=== PATIENT | female | born 1995 | race Caucasian/White ===

== ENCOUNTER 2021-10-10 02:21 | Emergency (ER) | payer BC ==
[2021-10-10] MEDS ORDERED: Sodium Chloride 0.9% 1,000 ML IV STA (02:37)
[2021-10-10] MEDS ORDERED: Sodium Chloride 0.9% 10 ML Syringe FLUSH PRN (02:37)
[2021-10-10] MEDS ORDERED: Ondansetron 4 MG/2 ML SDV IVPUSH ONE (02:37)
[2021-10-10] MEDS ORDERED: HYDROmorphone 1 MG/ML Syringe IVPUSH ONE (02:39)
--- NOTE | 2021-10-10 02:54 | EDM.PDOC ---
ED HPI GENERAL MEDICAL PROBLEM - General Chief Complaint: Gastrointestinal Problem Stated Complaint: ABD PAIN/NAUSEA Time Seen by Provider: 10/10/21 02:24 Source of Information: Reports: Patient History Limitations: Reports: No Limitations - History of Present Illness INITIAL COMMENTS - FREE TEXT/NARRATIVE: The patient presents with severe abdominal pain, nausea and vomiting. This all started on Wednesday night with nausea, vomiting and some diarrhea. She did have some abdominal cramps but it was from the vomiting. She then developed severe abdominal pain this evening. She has no fever, chills, cough, chest pain or shortness of breath. She has no dysuria or hematuria. She still has her appendix and gallbladder. She does not think she is . Onset: Gradual Duration: Day(s): (3) Location: Reports: Abdomen Quality: Reports: Sharp Severity: Severe Improves with: Reports: None Worsens with: Reports: None Associated Symptoms: Reports: Nausea/Vomiting. Denies: Chest Pain, Cough, Fever/Chills, Headaches, Shortness of Breath Lower Abdomen Pain Score (Numeric/FACES): 10 - Related Data Allergies Allergy/AdvReac Type Severity Reaction Status Date / Time amoxicillin Allergy Hives Verified 10/10/21 02:34 Home Meds: Home Meds Hydrocodone/Acetaminophen [Hydrocodone-Acetamin 5-325 mg] 1 - 2 each PO Q6H PRN #15 tablet 10/10/21 [Rx] Ondansetron [Zofran ODT] 4 mg PO Q6H PRN #20 tab.dis 10/10/21 [Rx] Potassium Chloride 20 meq PO DAILY #30 tablet.er 10/10/21 [Rx] Past Medical History - Past Surgical History HEENT Surgical History: Reports: Oral Surgery Social & Family History - Tobacco Use Tobacco Use Status *Q: Never Tobacco User - Caffeine Use Caffeine Use: Reports: None - Recreational Drug Use Recreational Drug Use: No ED ROS GENERAL - Review of Systems Review Of Systems: See Below Constitutional: Reports: No Symptoms HEENT: Reports: No Symptoms Respiratory: Reports: No Symptoms Cardiovascular: Reports: No Symptoms Endocrine: Reports: No Symptoms GI/Abdominal: Reports: Abdominal Pain, Diarrhea, Nausea, Vomiting : Reports: No Symptoms Musculoskeletal: Reports: No Symptoms ED EXAM, GI/ABD - Physical Exam Exam: See Below Exam Limited By: No Limitations General Appearance: Alert, No Apparent Distress Ears: Normal External Exam Nose: Normal Inspection Head: Atraumatic, Normocephalic Neck: Normal Inspection Respiratory/Chest: No Respiratory Distress, Lungs Clear, Normal Breath Sounds Cardiovascular: Regular Rate, Rhythm, No Edema, No Murmur GI/Abdominal Exam: Soft, No Organomegaly, No Mass, Tender (Moderate lower abdominal tenderness with some distension) Course - Vital Signs Last Recorded V/S: Last Vital Signs Temp 99.8 F 10/10/21 02:30 Pulse 122 H 10/10/21 02:30 Resp 20 10/10/21 02:30 BP 110/64 10/10/21 02:30 Pulse Ox 96 10/10/21 02:30 - Orders/Labs/Meds Orders: Active Orders 24 hr Category Date Time Status Peripheral IV Care [RC] . DIRECTED Care 10/10/21 02:38 Active Potassium Chloride [KCl in Water 10 MEQ/100 ML] 10 meq Med 10/10/21 05:45 Active Premix Bag 1 bag IV Q1H Sodium Chloride 0.9% [Saline Flush] Med 10/10/21 02:37 Active 10 ml FLUSH ASDIRECTED PRN ED Antiemetic Medication Reflex [OM.PC] Stat Oth 10/10/21 02:38 Ordered Peripheral IV Insertion Adult [OM.PC] Stat Oth 10/10/21 02:37 Ordered Medication Orders Potassium Chloride 10 meq/ (Premix) 100 mls @ 100 mls/hr IV Q1H FRIDA Stop: 10/10/21 07:44 Last Admin: 10/10/21 06:55 Dose: 100 mls/hr Documented by: Infusion: 10/10/21 06:52 Dose: 100 mls/hr Documented by: Admin: 10/10/21 05:52 Dose: 100 mls/hr Documented by: MILLI Sodium Chloride (Sodium Chloride 0.9% 10 Ml Syringe) 10 ml FLUSH ASDIRECTED PRN PRN Reason: Keep Vein Open Last Admin: 10/10/21 02:52 Dose: 10 ml Documented by: MILLI Labs: Laboratory Tests 10/10/21 10/10/21 10/10/21 Range/Units 02:54 02:54 02:54 WBC 10.58 H (3.98-10.04) K/mm3 RBC 4.06 (3.98-5.22) M/mm3 Hgb 11.7 D (11.2-15.7) gm/dl Hct 34.9 (34.1-44.9) % MCV 86.0 (79.4-94.8) fl MCH 28.8 (25.6-32.2) pg MCHC 33.5 (32.2-35.5) g/dl RDW Std Deviation 38.9 (36.4-46.3) fL Plt Count 177 L D (182-369) K/mm3 MPV 9.4 (9.4-12.3) fl Neut % (Auto) 89.9 H (34.0-71.1) % Lymph % (Auto) 3.5 L (19.3-51.7) % [place] % (Auto) 6.0 (4.7-12.5) % Eos % (Auto) 0 L (0.7-5.8) Baso % (Auto) 0.1 (0.1-1.2) % Neut # (Auto) 9.51 H (1.56-6.13) K/mm3 Lymph # (Auto) 0.37 L (1.18-3.74) K/mm3 [place]herty # (Auto) 0.64 H (0.24-0.36) K/mm3 Eos # (Auto) 0.00 L (0.04-0.36) K/mm3 Baso # (Auto) 0.01 (0.01-0.08) K/mm3 Sodium 138 (136-145) mEq/L Potassium 2.9 L (3.5-5.1) mEq/L Chloride 100 (98-107) mEq/L Carbon Dioxide 21 (21-32) mEq/L Anion Gap 19.9 H (5-15) BUN 12 (7-18) mg/dL Creatinine 0.9 (0.55-1.02) mg/dL Est Cr Clr Drug Dosing 82.82 mL/min Estimated GFR (MDRD) > 60 (>60) mL/min BUN/Creatinine Ratio 13.3 L (14-18) Glucose 113 H (70-99) mg/dL Calcium 8.8 (8.5-10.1) mg/dL Total Bilirubin 0.6 (0.2-1.0) mg/dL AST 27 (15-37) U/L ALT 34 (14-59) U/L Alkaline Phosphatase 49 (46-116) U/L Total Protein 7.2 (6.4-8.2) g/dl Albumin 3.7 (3.4-5.0) g/dl Globulin 3.5 gm/dL Albumin/Globulin Ratio 1.1 (1-2) Lipase 69 L (73-393) U/L HCG, Qual Negative (NEGATIVE) Urine Color (Yellow) Urine Appearance (Clear) Urine pH (5.0-8.0) Ur Specific [place] (1.005-1.030) Urine Protein (Negative) Urine Glucose (UA) (Negative) Urine Ketones (Negative) Urine Occult Blood (Negative) Urine Nitrite (Negative) Urine Bilirubin (Negative) Urine Urobilinogen (0.2-1.0) Ur Leukocyte Esterase (Negative) Urine RBC (0-5) /hpf Urine WBC (0-5) /hpf Ur Squamous Epith Cells (0-5) /hpf Amorphous Sediment (NOT SEEN) /hpf Urine Bacteria (FEW) /hpf Urine Mucus (FEW) /hpf 10/10/21 Range/Units 05:45 WBC (3.98-10.04) K/mm3 RBC (3.98-5.22) M/mm3 Hgb (11.2-15.7) gm/dl Hct (34.1-44.9) % MCV (79.4-94.8) fl MCH (25.6-32.2) pg MCHC (32.2-35.5) g/dl RDW Std Deviation (36.4-46.3) fL Plt Count (182-369) K/mm3 MPV (9.4-12.3) fl Neut % (Auto) (34.0-71.1) % Lymph % (Auto) (19.3-51.7) % [place] % (Auto) (4.7-12.5) % Eos % (Auto) (0.7-5.8) Baso % (Auto) (0.1-1.2) % Neut # (Auto) (1.56-6.13) K/mm3 Lymph # (Auto) (1.18-3.74) K/mm3 [place] # (Auto) (0.24-0.36) K/mm3 Eos # (Auto) (0.04-0.36) K/mm3 Baso # (Auto) (0.01-0.08) K/mm3 Sodium (136-145) mEq/L Potassium (3.5-5.1) mEq/L Chloride (98-107) mEq/L Carbon Dioxide (21-32) mEq/L Anion Gap (5-15) BUN (7-18) mg/dL Creatinine (0.55-1.02) mg/dL Est Cr Clr Drug Dosing mL/min Estimated GFR (MDRD) (>60) mL/min BUN/Creatinine Ratio (14-18) Glucose (70-99) mg/dL Calcium (8.5-10.1) mg/dL Total Bilirubin (0.2-1.0) mg/dL AST (15-37) U/L ALT (14-59) U/L Alkaline Phosphatase (46-116) U/L Total Protein (6.4-8.2) g/dl Albumin (3.4-5.0) g/dl Globulin gm/dL Albumin/Globulin Ratio (1-2) Lipase (73-393) U/L HCG, Qual (NEGATIVE) Urine Color Yellow (Yellow) Urine Appearance Clear (Clear) Urine pH 5.5 (5.0-8.0) Ur Specific [place] 1.010 (1.005-1.030) Urine Protein Negative (Negative) Urine Glucose (UA) Negative (Negative) Urine Ketones Trace H (Negative) Urine Occult Blood Trace-intact H (Negative) Urine Nitrite Negative (Negative) Urine Bilirubin Negative (Negative) Urine Urobilinogen 1.0 (0.2-1.0) Ur Leukocyte Esterase Negative (Negative) Urine RBC 0-5 (0-5) /hpf Urine WBC 0-5 (0-5) /hpf Ur Squamous Epith Cells 5-10 H (0-5) /hpf Amorphous Sediment Few H (NOT SEEN) /hpf Urine Bacteria Few (FEW) /hpf Urine Mucus Few (FEW) /hpf Meds: Medications Generic Name Dose Route Start Last Admin Trade Name Freq PRN Reason Stop Dose Admin Potassium Chloride 10 meq/ 100 mls @ 100 mls/hr 10/10/21 05:45 10/10/21 06:55 Premix IV 10/10/21 07:44 100 mls/hr Q1H FRIDA Administration Sodium Chloride 10 ml 10/10/21 02:37 10/10/21 02:52 Sodium Chloride 0.9% 10 Ml Syringe FLUSH 10 ml ASDIRECTED PRN Administration Keep Vein Open Discontinued Medications Generic Name Dose Route Start Last Admin Trade Name Freq PRN Reason Stop Dose Admin Hydromorphone HCl 1 mg 10/10/21 02:39 10/10/21 02:50 Hydromorphone 1 Mg/Ml Syringe IVPUSH 10/10/21 02:40 1 mg ONETIME ONE Administration Hydromorphone HCl 0.5 mg 10/10/21 05:43 10/10/21 05:51 Hydromorphone 0.5 Mg/0.5 Ml Syringe IVPUSH 10/10/21 05:44 0.5 mg ONETIME ONE Administration Sodium Chloride 1,000 mls @ 1,000 mls/hr 10/10/21 02:37 10/10/21 02:49 Normal Saline IV 10/10/21 03:36 1,000 mls/hr .BOLUS STA Administration Sodium Chloride 1,000 mls @ 1,000 mls/hr 10/10/21 05:43 10/10/21 05:51 Normal Saline IV 10/10/21 06:42 1,000 mls/hr ONETIME ONE Administration Ketorolac Tromethamine 30 mg 10/10/21 06:27 10/10/21 06:32 Ketorolac 30 Mg/Ml Sdv IVPUSH 10/10/21 06:28 30 mg ONETIME ONE Administration Metoclopramide HCl 10 mg 10/10/21 03:23 10/10/21 03:28 Metoclopramide 10 Mg/2 Ml Sdv IVPUSH 10/10/21 03:24 10 mg ONETIME ONE Administration Ondansetron HCl 4 mg 10/10/21 02:37 10/10/21 02:50 Ondansetron 4 Mg/2 Ml Sdv IVPUSH 10/10/21 02:38 4 mg ONETIME ONE Administration - Re-Assessments/Exams Free Text/Narrative Re-Assessment/Exam: 10/10/21 02:54 I ordered an IV NS 1L bolus, zofran 4mg IV, dilaudid 1mg IV, labs, UA and a CT of her abdomen and pelvis with IV and oral contrast. 10/10/21 06:57 Her WBC was elevated at 10.58. Her K was low at 2.9. Her anion gap was elevated at 19.9. Her UA shows no UTI. I ordered 20meq of KCL IV. She had more pain so I gave her dilaudid 0.5mg IV and then some toradol. I also gave her reglan 10mg IV. Her CT shows no acute abnormality is identified on CT study of the abdomen and pelvis. Findings believed to be nonacute. She feels better. I will discharge her home on zofran and hydrocodone and some potassium. Departure - Departure Time of Disposition: 07:05 Disposition: Home, Self-Care 01 Condition: Good Clinical Impression: Viral gastroenteritis - Discharge Information *PRESCRIPTION DRUG MONITORING PROGRAM REVIEWED*: Not Applicable *COPY OF PRESCRIPTION DRUG MONITORING REPORT IN PATIENT MELI: Not Applicable Prescriptions: Hydrocodone/Acetaminophen [Hydrocodone-Acetamin 5-325 mg] 1 - 2 each PO Q6H PRN #15 tablet PRN Reason: Pain Potassium Chloride 20 meq PO DAILY #30 tablet.er Ondansetron [Zofran ODT] 4 mg PO Q6H PRN #20 tab.dis PRN Reason: Nausea\vomiting Referrals: Beth Dorantes [facility] CONSULTANT [Primary Care Provider] - 1 Week Forms: ED Department Discharge Additional Instructions: Drink plenty of fluids. Take potassium daily. Take the zofran every 6 hours as needed for nausea and vomiting. Take tylenol or motrin as needed for pain. If that does not help, try the hydrocodone. Please return if you are worse. Sepsis Event Note (ED) - Evaluation Sepsis Screening Result: No Definite Risk - Focused Exam Vital Signs: Vital Signs Temp Pulse Resp BP Pulse Ox 10/10/21 02:30 99.8 F 122 H 20 110/64 96 - My Orders Last 24 Hours: My Active Orders 10/10/21 02:37 Sodium Chloride 0.9% [Saline Flush] 10 ml FLUSH ASDIRECTED PRN Peripheral IV Insertion Adult [OM.PC] Stat 10/10/21 02:38 Peripheral IV Care [RC] . DIRECTED ED Antiemetic Medication Reflex [OM.PC] Stat 10/10/21 05:45 Potassium Chloride [KCl in Water 10 MEQ/100 ML] 10 meq Premix Bag 1 bag IV Q1H - Assessment/Plan Last 24 Hours: My Active Orders 10/10/21 02:37 Sodium Chloride 0.9% [Saline Flush] 10 ml FLUSH ASDIRECTED PRN Peripheral IV Insertion Adult [OM.PC] Stat 10/10/21 02:38 Peripheral IV Care [RC] . DIRECTED ED Antiemetic Medication Reflex [OM.PC] Stat 10/10/21 05:45 Potassium Chloride [KCl in Water 10 MEQ/100 ML] 10 meq Premix Bag 1 bag IV Q1H
[2021-10-10] MEDS ORDERED: Metoclopramide 10 MG/2 ML SDV IVPUSH ONE (03:23)
[2021-10-10] MEDS ORDERED: Sodium Chloride 0.9% 1,000 ML IV ONE (05:43)
[2021-10-10] MEDS ORDERED: HYDROmorphone 0.5 MG/0.5 ML Syringe IVPUSH ONE (05:43)
[2021-10-10] MEDS: Potassium Chloride 10 MEQ in Premix Bag 1 BAG IV SCH ×2 (05:52→06:55)
[2021-10-10] MEDS ORDERED: Ketorolac 30 MG/ML SDV IVPUSH ONE (06:27)
--- NOTE | 2021-10-10 06:37 | CT ---
CT abdomen and the pelvis Technique: Multiple axial sections were obtained from above the dome of the diaphragm inferiorly through the pubic symphysis. Intravenous and oral contrast were utilized. Delayed images were also obtained through the bladder. Reconstructed coronal and sagittal images were obtained. Comparison: Prior pelvic ultrasound of 08/22/21. Findings: Visualized lung bases show nothing acute. Liver contains no focal parenchymal abnormality. Gallbladder contains no calcified gallstones. Spleen size is normal. Adrenal glands show no nodule. Pancreas is within normal limits. Kidneys show symmetric contrast enhancement. No hydronephrosis or mass is seen. Abdominal aorta shows no aneurysm. No retroperitoneal adenopathy or mesenteric abnormalities are seen. No pelvic mass or adenopathy is seen. Device is seen within the vagina most likely representing a menstrual cup. Minimal fluid is seen within the pelvis believed to be physiologic. Appendix is felt to be visualized. Delayed images show contrast within the distal ureters and within the bladder. Bone window settings were reviewed. No acute osseous finding is seen. Impression: 1. No acute abnormality is identified on CT study of the abdomen and pelvis. 2. Findings believed to be nonacute as described above. Diagnostic code #2 I agree with preliminary report from [facility] finalized on 10/10/21, 6:18 AM [employer], code 1
[2021-10-10] MEDS ORDERED: Acetaminophen 325 MG Tab PO ONE (08:18)
== END 2021-10-10 08:30 | disposition home or self-care (01) ==
LOC: JD.ED 02:21
DX: A08.4 Viral intestinal infection, unspecified (principal); R11.2 Nausea with vomiting, unspecified; Z88.0 Allergy status to penicillin
CPT/HCPCS: 36415; 74177; 80053; 81001; 83690; 84703; 85025; 96365; 96366; 96375; 96376; 99284; A9270; J1170; J1885; J2405; J2765; J3480; J7030

== ENCOUNTER 2021-10-12 17:58 | Emergency (ER) | payer BC ==
[2021-10-12 19:48] LABS: CORONAVIRUS COVID-19 NAA NEGATIVE (NEGATIVE)
--- NOTE | 2021-10-12 20:32 | EDM.PDOC ---
ED HPI GENERAL MEDICAL PROBLEM - General Chief Complaint: Respiratory Problem Stated Complaint: CHEST TIGHTNESS/TROUBLE BREATHING Time Seen by Provider: 10/12/21 20:25 - History of Present Illness INITIAL COMMENTS - FREE TEXT/NARRATIVE: 25-year-old female presents the emergency room after being seen a few days ago with anterior chest pain still some nausea and vomiting. Patient was seen couple days ago diagnosed with acute gastroenteritis. She is developing worsening chest pain. The chest pain seems to be anterior chest right under her breastbone. It is not associated with breathing difficulties or shortness of breath her pulse rate been normal run a little on the fast side. The pain that she has is worsened by deep breathing and coughing. She is not aware of any fevers or chills she is trying to keep fluids down this is not working so good. The patient was noted to be mildly hypokalemic on her last visit and had this somewhat corrected. She seemed to be coughing more but still has some gastrointestinal symptoms. Treatments CHECKERER HAND: Reports: Other (see below) Other Treatments CHECKERER HAND: tylenol 2 tabs today Chest Pain Score (Numeric/FACES): 8 Back Pain Score (Numeric/FACES): 8 Abdomen Pain Score (Numeric/FACES): 5 - Related Data Allergies Allergy/AdvReac Type Severity Reaction Status Date / Time amoxicillin Allergy Hives Verified 10/10/21 02:34 Home Meds: Home Meds Hydrocodone/Acetaminophen [Hydrocodone-Acetamin 5-325 mg] 1 - 2 each PO Q6H PRN #15 tablet 10/10/21 [Rx] Ondansetron [Zofran ODT] 4 mg PO Q6H PRN #20 tab.dis 10/10/21 [Rx] Potassium Chloride 20 meq PO DAILY #30 tablet.er 10/10/21 [Rx] Famotidine [Pepcid AC] 20 mg PO BID #30 tablet 10/12/21 [Rx] Hydrocodone/Acetaminophen [HYDROcodone-Acetaminophen 5-325 MG] 1 each PO Q6H PRN #14 tab 10/12/21 [Rx] Naproxen 500 mg PO BID #30 tablet 10/12/21 [Rx] Past Medical History - Past Surgical History HEENT Surgical History: Reports: Oral Surgery Social & Family History - Tobacco Use Tobacco Use Status *Q: Never Tobacco User Second Hand Smoke Exposure: No - Caffeine Use Caffeine Use: Reports: None ED ROS GENERAL - Review of Systems Review Of Systems: See Below Constitutional: Reports: No Symptoms HEENT: Reports: No Symptoms Respiratory: Reports: No Symptoms Cardiovascular: Reports: No Symptoms Endocrine: Reports: No Symptoms GI/Abdominal: Reports: Nausea, Vomiting : Reports: No Symptoms Musculoskeletal: Reports: No Symptoms Skin: Reports: No Symptoms Neurological: Reports: No Symptoms Psychiatric: Reports: No Symptoms ED EXAM, GENERAL - Physical Exam Exam: See Below Exam Limited By: No Limitations General Appearance: Alert, No Apparent Distress Eye Exam: Bilateral Eye: EOMI, Normal Inspection, PERRL Ears: Normal External Exam, Normal Canal, Hearing Grossly Normal, Normal TMs Nose: Normal Inspection, Normal Mucosa, No Blood Head: Atraumatic, Normocephalic Neck: Normal Inspection, Supple, Non-Tender, Full Range of Motion. No: Lymphadenopathy (L), Lymphadenopathy (R) Respiratory/Chest: No Respiratory Distress, Lungs Clear, Normal Breath Sounds, No Accessory Muscle Use, Chest Non-Tender Cardiovascular: Normal Peripheral Pulses, Regular Rate, Rhythm, No Edema, Tachycardia (Mild) GI/Abdominal: Normal Bowel Sounds, Soft, Tender (Normal discomfort with palpation no localizing signs no rigidity rebound or guarding) Back Exam: Normal Inspection. No: CVA Tenderness (L), CVA Tenderness (R) Extremities: Normal Inspection, Non-Tender, No Pedal Edema Neurological: Alert, Oriented, Normal Cognition #1 Interpretation EKG Date: 10/12/21 Rhythm: Other (Mild sinus tachycardia) Rate (Beats/Min): 103 [place]: Normal P-Wave: Present QRS: Normal ST-T: Normal QT: Normal IL/PQ Interval: Downsloping IL interval in leads I to aVF and the lateral precordial leads Comparison: NA - No Prior EKG EKG Interpretation Comments: Abnormal EKG Course - Vital Signs Last Recorded V/S: Last Vital Signs Temp 36.2 C 10/12/21 18:37 Pulse 109 H 10/12/21 18:37 Resp BP 104/72 10/12/21 18:37 Pulse Ox 99 10/12/21 21:25 - Orders/Labs/Meds Orders: Active Orders 24 hr Category Date Time Status Ang Chest [CT] Stat Exams 10/12/21 21:18 Taken Chest 1V Frontal [CR] Stat Exams 10/12/21 19:03 Taken Peripheral IV Insertion Adult [OM.PC] Stat Oth 10/12/21 18:54 Ordered Labs: Laboratory Tests 10/12/21 10/12/21 10/12/21 Range/Units 19:00 19:10 19:10 WBC 8.72 (3.98-10.04) K/mm3 RBC 3.99 (3.98-5.22) M/mm3 Hgb 11.3 (11.2-15.7) gm/dl Hct 34.0 L (34.1-44.9) % MCV 85.2 (79.4-94.8) fl MCH 28.3 (25.6-32.2) pg MCHC 33.2 (32.2-35.5) g/dl RDW Std Deviation 39.9 (36.4-46.3) fL Plt Count 199 (182-369) K/mm3 MPV 9.7 (9.4-12.3) fl Neut % (Auto) 93.6 H (34.0-71.1) % Lymph % (Auto) 2.3 L (19.3-51.7) % Ralls % (Auto) 2.2 L (4.7-12.5) % Eos % (Auto) 0.3 L (0.7-5.8) Baso % (Auto) 0.1 (0.1-1.2) % Neut # (Auto) 8.16 H (1.56-6.13) K/mm3 Lymph # (Auto) 0.20 L (1.18-3.74) K/mm3 Ralls # (Auto) 0.19 L (0.24-0.36) K/mm3 Eos # (Auto) 0.03 L (0.04-0.36) K/mm3 Baso # (Auto) 0.01 (0.01-0.08) K/mm3 Manual Slide Review Abnormal smear D-Dimer, Quantitative (0.19-0.50) mg/L Sodium (136-145) mEq/L Potassium (3.5-5.1) mEq/L Chloride (98-107) mEq/L Carbon Dioxide (21-32) mEq/L Anion Gap (5-15) BUN (7-18) mg/dL Creatinine (0.55-1.02) mg/dL Est Cr Clr Drug Dosing mL/min Estimated GFR (MDRD) (>60) mL/min BUN/Creatinine Ratio (14-18) Glucose (70-99) mg/dL Calcium (8.5-10.1) mg/dL Troponin I (0.00-0.056) ng/mL HCG, Quant < 1.0 mIU/mL Urine Color (Yellow) Urine Appearance (Clear) Urine pH (5.0-8.0) Ur Specific [place] (1.005-1.030) Urine Protein (Negative) Urine Glucose (UA) (Negative) Urine Ketones (Negative) Urine Occult Blood (Negative) Urine Nitrite (Negative) Urine Bilirubin (Negative) Urine Urobilinogen (0.2-1.0) Ur Leukocyte Esterase (Negative) Urine RBC (0-5) /hpf Urine WBC (0-5) /hpf Ur Squamous Epith Cells (0-5) /hpf Urine Bacteria (FEW) /hpf Urine Mucus (FEW) /hpf Influenza Type A RNA Negative (NEGATIVE) Influenza Type B RNA Negative (NEGATIVE) SARS-CoV-2 RNA (IRAM) Negative (NEGATIVE) Group A Strep (PCR) (NOT DETECT) 10/12/21 10/12/21 10/12/21 Range/Units 19:10 19:10 19:10 WBC (3.98-10.04) K/mm3 RBC (3.98-5.22) M/mm3 Hgb (11.2-15.7) gm/dl Hct (34.1-44.9) % MCV (79.4-94.8) fl MCH (25.6-32.2) pg MCHC (32.2-35.5) g/dl RDW Std Deviation (36.4-46.3) fL Plt Count (182-369) K/mm3 MPV (9.4-12.3) fl Neut % (Auto) (34.0-71.1) % Lymph % (Auto) (19.3-51.7) % Ralls % (Auto) (4.7-12.5) % Eos % (Auto) (0.7-5.8) Baso % (Auto) (0.1-1.2) % Neut # (Auto) (1.56-6.13) K/mm3 Lymph # (Auto) (1.18-3.74) K/mm3 Ralls # (Auto) (0.24-0.36) K/mm3 Eos # (Auto) (0.04-0.36) K/mm3 Baso # (Auto) (0.01-0.08) K/mm3 Manual Slide Review D-Dimer, Quantitative 5.77 H (0.19-0.50) mg/L Sodium 134 L (136-145) mEq/L Potassium 3.2 L (3.5-5.1) mEq/L Chloride 97 L (98-107) mEq/L Carbon Dioxide 27 (21-32) mEq/L Anion Gap 13.2 (5-15) BUN 18 (7-18) mg/dL Creatinine 0.8 (0.55-1.02) mg/dL Est Cr Clr Drug Dosing 93.18 mL/min Estimated GFR (MDRD) > 60 (>60) mL/min BUN/Creatinine Ratio 22.5 H (14-18) Glucose 77 (70-99) mg/dL Calcium 8.3 L (8.5-10.1) mg/dL Troponin I < 0.017 (0.00-0.056) ng/mL HCG, Quant mIU/mL Urine Color (Yellow) Urine Appearance (Clear) Urine pH (5.0-8.0) Ur Specific [place] (1.005-1.030) Urine Protein (Negative) Urine Glucose (UA) (Negative) Urine Ketones (Negative) Urine Occult Blood (Negative) Urine Nitrite (Negative) Urine Bilirubin (Negative) Urine Urobilinogen (0.2-1.0) Ur Leukocyte Esterase (Negative) Urine RBC (0-5) /hpf Urine WBC (0-5) /hpf Ur Squamous Epith Cells (0-5) /hpf Urine Bacteria (FEW) /hpf Urine Mucus (FEW) /hpf Influenza Type A RNA (NEGATIVE) Influenza Type B RNA (NEGATIVE) SARS-CoV-2 RNA (IRAM) (NEGATIVE) Group A Strep (PCR) (NOT DETECT) 10/12/21 10/12/21 Range/Units 20:50 20:50 WBC (3.98-10.04) K/mm3 RBC (3.98-5.22) M/mm3 Hgb (11.2-15.7) gm/dl Hct (34.1-44.9) % MCV (79.4-94.8) fl MCH (25.6-32.2) pg MCHC (32.2-35.5) g/dl RDW Std Deviation (36.4-46.3) fL Plt Count (182-369) K/mm3 MPV (9.4-12.3) fl Neut % (Auto) (34.0-71.1) % Lymph % (Auto) (19.3-51.7) % Ralls % (Auto) (4.7-12.5) % Eos % (Auto) (0.7-5.8) Baso % (Auto) (0.1-1.2) % Neut # (Auto) (1.56-6.13) K/mm3 Lymph # (Auto) (1.18-3.74) K/mm3 Ralls # (Auto) (0.24-0.36) K/mm3 Eos # (Auto) (0.04-0.36) K/mm3 Baso # (Auto) (0.01-0.08) K/mm3 Manual Slide Review D-Dimer, Quantitative (0.19-0.50) mg/L Sodium (136-145) mEq/L Potassium (3.5-5.1) mEq/L Chloride (98-107) mEq/L Carbon Dioxide (21-32) mEq/L Anion Gap (5-15) BUN (7-18) mg/dL Creatinine (0.55-1.02) mg/dL Est Cr Clr Drug Dosing mL/min Estimated GFR (MDRD) (>60) mL/min BUN/Creatinine Ratio (14-18) Glucose (70-99) mg/dL Calcium (8.5-10.1) mg/dL Troponin I (0.00-0.056) ng/mL HCG, Quant mIU/mL Urine Color Yellow (Yellow) Urine Appearance Slt cloudy H (Clear) Urine pH 6.5 (5.0-8.0) Ur Specific [place] 1.020 (1.005-1.030) Urine Protein 3+ H (Negative) Urine Glucose (UA) Negative (Negative) Urine Ketones 2+ H (Negative) Urine Occult Blood 3+ H (Negative) Urine Nitrite Negative (Negative) Urine Bilirubin 1+ H (Negative) Urine Urobilinogen 0.2 (0.2-1.0) Ur Leukocyte Esterase Negative (Negative) Urine RBC 5-10 H (0-5) /hpf Urine WBC 0-5 (0-5) /hpf Ur Squamous Epith Cells 20-30 H (0-5) /hpf Urine Bacteria Moderate H (FEW) /hpf Urine Mucus Few (FEW) /hpf Influenza Type A RNA (NEGATIVE) Influenza Type B RNA (NEGATIVE) SARS-CoV-2 RNA (IRAM) (NEGATIVE) Group A Strep (PCR) Not detected (NOT DETECT) Meds: Medications Discontinued Medications Generic Name Dose Route Start Last Admin Trade Name Freq PRN Reason Stop Dose Admin Albuterol 0 gm 10/12/21 20:38 10/12/21 21:24 Albuterol 6.7 Gm Inhaler INH 10/12/21 20:39 2 puff ONETIME ONE Administration Lactated Ringer's 1,000 mls @ 999 mls/hr 10/12/21 20:37 10/12/21 20:50 Ringers, Lactated IV 10/12/21 21:37 999 mls/hr .BOLUS ONE Administration Sodium Chloride 100 mls @ 60 mls/min 10/12/21 21:30 10/12/21 21:58 Normal Saline IV 60 mls/min ASDIRECTED FRIDA Administration Iopamidol 100 ml 10/12/21 21:29 10/12/21 21:57 Iopamidol 755 Mg/Ml 100 Ml Bottle IVPUSH 10/12/21 21:30 100 ml ONETIME ONE Administration Ketorolac Tromethamine 15 mg 10/12/21 22:34 10/12/21 22:44 Ketorolac 15 Mg/Ml Sdv IVPUSH 10/12/21 22:35 15 mg ONETIME ONE Administration Morphine Sulfate 2 mg 10/12/21 22:15 10/12/21 22:19 Morphine 2 Mg/Ml Syringe IVPUSH 10/12/21 22:16 2 mg ONETIME ONE Administration Ondansetron HCl 4 mg 10/12/21 20:37 10/12/21 20:50 Ondansetron 4 Mg Tab.Dis PO 10/12/21 20:38 4 mg ONETIME ONE Administration Potassium Chloride 20 meq 10/12/21 20:37 10/12/21 20:50 Potassium Chloride 20 Meq Tab.Er PO 10/12/21 20:38 20 meq ONETIME ONE Administration Potassium Chloride 20 meq 10/12/21 22:35 10/12/21 22:44 Potassium Chloride 20 Meq Tab.Er PO 10/12/21 22:36 20 meq ONETIME ONE Administration Sodium Chloride 10 ml 10/12/21 18:54 10/12/21 21:57 Sodium Chloride 0.9% 10 Ml Syringe FLUSH 10 ml ASDIRECTED PRN Administration Keep Vein Open Sodium Chloride 10 ml 10/12/21 21:29 10/12/21 22:19 Sodium Chloride 0.9% 10 Ml Sdv FLUSH 10/12/21 21:30 10 ml ONETIME ONE Administration - Re-Assessments/Exams Free Text/Narrative Re-Assessment/Exam: 10/12/21 22:36 Patient's D-dimer was elevated. She had some discomfort was given some morphine for this. CTA did not show pulmonary embolism but showed a very small pe ricardial effusion and small bilateral pleural effusions. Patient was given 15 mg of IV Toradol. With his continued hypokalemia she is got 8 or 10 tablets at home she will continue taking these as directed. She has a couple hydrocodone left we will give her a few more. Start her on Pepcid 20 mg twice daily and naproxen 500 mg p.o. twice daily and have her follow-up in the [facility] on Wednesday for recheck. Departure - Departure Time of Disposition: 22:37 Disposition: Home, Self-Care 01 Clinical Impression: Pericarditis, Pleuritis - Discharge Information Prescriptions: Hydrocodone/Acetaminophen [HYDROcodone-Acetaminophen 5-325 MG] 1 each PO Q6H PRN #14 tab PRN Reason: Pain Naproxen 500 mg PO BID #30 tablet Famotidine [Pepcid AC] 20 mg PO BID #30 tablet Instructions: Pericarditis, Pleurisy, [id number] Referrals: Yelena Liang GEM EXPERT [Primary Care Provider] - Forms: ED Department Discharge Additional Instructions: Return to the emergency room with any questions problems or worsening symptoms. I have given you a few more [place] take 1 every 6 hours as needed for pain. Allow 12 hours after using this medication before driving or returning to work. Apparently you still have some potassium take as directed. It is important that this medication gets taken as directed. I have started you on naproxen. This is an ibuprofen like medication however as it is only taken twice daily take it with your morning and evening meals. Do not take ibuprofen or other medications like this with it. To help your stomach have also added famotidine, or Pepcid take this twice daily to help with protect your stomach from the naproxen. Follow-up in the [facility] on Wednesday for recheck Sepsis Event Note (ED) - Focused Exam Vital Signs: Vital Signs Temp Pulse BP Pulse Ox Pulse Ox 10/12/21 21:25 99 10/12/21 18:37 36.2 C 109 H 104/72 99 - My Orders Last 24 Hours: My Active Orders 10/12/21 18:54 Peripheral IV Insertion Adult [OM.PC] Stat 10/12/21 21:18 Ang Chest [CT] Stat - Assessment/Plan Last 24 Hours: My Active Orders 10/12/21 18:54 Peripheral IV Insertion Adult [OM.PC] Stat 10/12/21 21:18 Ang Chest [CT] Stat
[2021-10-12] MEDS ORDERED: Potassium Chloride 20 MEQ Tab.ER PO ONE ×2 (20:37→22:35)
[2021-10-12] MEDS ORDERED: Lactated Ringers 1,000 ML IV ONE (20:37)
[2021-10-12] MEDS ORDERED: Ondansetron 4 MG Tab.DIS PO ONE (20:37)
[2021-10-12] MEDS ORDERED: Albuterol 6.7 GM Inhaler INH ONE (20:38)
[2021-10-12] MEDS: Sodium Chloride 0.9% 10 ML Syringe FLUSH PRN ×2 (20:50→21:57)
[2021-10-12] MEDS ORDERED: Iopamidol 755 Mg/ML 100 ML Bottle IVPUSH ONE (21:29)
[2021-10-12] MEDS ORDERED: Sodium Chloride 0.9% 10 ML SDV FLUSH ONE (21:29)
[2021-10-12] MEDS ORDERED: Sodium Chloride 0.9% 100 ML IV SCH (21:30)
[2021-10-12] MEDS ORDERED: Morphine 2 MG/ML SYRINGE IVPUSH ONE (22:15)
[2021-10-12] MEDS ORDERED: Ketorolac 15 MG/ML SDV IVPUSH ONE (22:34)
--- NOTE | 2021-10-13 07:18 | CR ---
Chest: Frontal view of the chest was obtained. Comparison: No prior chest imaging is available. Heart size and mediastinum are within normal limits. Lungs are clear with no acute parenchymal change. Bony structures show nothing acute. Impression: 1. Nothing acute is seen on frontal chest x-ray. Diagnostic code #1
--- NOTE | 2021-10-13 07:20 | CT ---
CT chest Technique: Multiple axial sections were obtained from above the lung apices inferiorly through the lung bases. Intravenous contrast was utilized. Study has been performed as a pulmonary angiogram protocol. Comparison: No prior chest imaging is available. Findings: Pulmonary arteries are well opacified. No filling defects are seen to indicate pulmonary embolism. Thoracic aorta shows no aneurysm. No mediastinal adenopathy is seen. No axillary adenopathy is seen. Minimal pericardial thickening is seen. Visualized upper abdominal structures show nothing acute. Small bilateral pleural effusions are seen. Lungs otherwise are clear. No acute parenchymal change is seen. Bone window settings were reviewed. No acute osseous finding is seen. Impression: 1. No findings of pulmonary embolism. 2. Small bilateral pleural effusions are noted. 3. Minimal pericardial effusion. Please exclude any symptoms of pericarditis. 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
== END 2021-10-12 23:00 | disposition home or self-care (01) ==
LOC: SUPCPDRO 17:58 → JD.ED 17:58
DX: I31.9 Disease of pericardium, unspecified (principal); R09.1 Pleurisy; R00.0 Tachycardia, unspecified; R94.31 Abnormal electrocardiogram [ECG] [EKG]; Z88.0 Allergy status to penicillin; Z20.822 Contact with and (suspected) exposure to COVID-19
CPT/HCPCS: 0240U; 36415; 71045; 71275; 80048; 81001; 84484; 84702; 85025; 85379; 87651; 93005; 94640; 96374; 96375; 99285; A9270; J1885; J2270; J7120; Q9967

== ENCOUNTER 2021-10-14 14:48 | Emergency (ER) | payer BC ==
[2021-10-14] MEDS ORDERED: Sodium Chloride 0.9% 10 ML Syringe FLUSH PRN (15:04)
[2021-10-14] MEDS ORDERED: Albuterol/Ipratropium 3.0-0.5 MG/3 ML Neb Soln NEB ONE (15:04)
--- NOTE | 2021-10-14 15:22 | EDM.PDOC ---
ED HPI GENERAL MEDICAL PROBLEM - General Chief Complaint: Chest Pain Stated Complaint: ARELI Time Seen by Provider: 10/14/21 14:52 Source of Information: Reports: Patient, EMS, Family ( ), RN Notes Reviewed History Limitations: Reports: Other (Pt extremely ill) - History of Present Illness INITIAL COMMENTS - FREE TEXT/NARRATIVE: 25 yr old female became ill about 1 week ago with nausea, vomiting, abd pain and some diarrhea. That progressed to get worse over the next few days. She was evaluated in out ED 4 days ago for that, see that record for details. Of note her WBC was mildly elevated at around 11,000, K+ 2.9, other labs relatively normal. She had a CT abd/pelvis, no acute findings. She returned to ED 2 days ago more ill, continued GI sx but now also having chest pain and shortness of breath. Her D dimer was not elevated at 5.77, covid neg., ketones in her urine, CTPA now showed a small pericardial effusion, small bilateral pleural effusions. - Related Data Allergies Allergy/AdvReac Type Severity Reaction Status Date / Time amoxicillin Allergy Hives Verified 10/14/21 14:56 Home Meds: Home Meds Hydrocodone/Acetaminophen [Hydrocodone-Acetamin 5-325 mg] 1 - 2 each PO Q6H PRN #15 tablet 10/10/21 [Rx] Ondansetron [Zofran ODT] 4 mg PO Q6H PRN #20 tab.dis 10/10/21 [Rx] Potassium Chloride 20 meq PO DAILY #30 tablet.er 10/10/21 [Rx] Famotidine [Pepcid AC] 20 mg PO BID #30 tablet 10/12/21 [Rx] Hydrocodone/Acetaminophen [HYDROcodone-Acetaminophen 5-325 MG] 1 each PO Q6H PRN #14 tab 10/12/21 [Rx] Naproxen 500 mg PO BID #30 tablet 10/12/21 [Rx] Past Medical History Cardiovascular History: Reports: Other (See Below) Other Cardiovascular History: pericarditis - Past Surgical History HEENT Surgical History: Reports: Oral Surgery Social & Family History - Tobacco Use Tobacco Use Status *Q: Unknown Ever Used Tobacco Second Hand Smoke Exposure: No - Caffeine Use Caffeine Use: Reports: None ED ROS GENERAL - Review of Systems Review Of Systems: See Below Constitutional: Reports: Fever, Chills HEENT: Reports: No Symptoms Respiratory: Reports: Shortness of Breath, Pleuritic Chest Pain, Cough Cardiovascular: Reports: Chest Pain GI/Abdominal: Reports: Diarrhea, Decreased Appetite, Nausea, Vomiting. Denies: Abdominal Pain Skin: Reports: Pallor Neurological: Reports: Dizziness, Weakness (generalized) ED EXAM, GENERAL - Physical Exam Exam: See Below General Appearance: Other (awake but very ) Course - Vital Signs Last Recorded V/S: Last Vital Signs Temp 97.4 F 10/14/21 14:52 Pulse 130 H 10/14/21 14:52 Resp 16 10/14/21 14:52 BP 139/74 10/14/21 14:52 Pulse Ox 92 L 10/14/21 17:00 - Orders/Labs/Meds Orders: Active Orders 24 hr Category Date Time Status Peripheral IV Care [RC] . DIRECTED Care 10/14/21 15:07 Active RT Ventilator, Adult [RC] ASDIRECTED Care 10/14/21 18:09 Active CXR [Chest 1V Frontal] [CR] Stat Exams 10/14/21 18:53 Taken BLOOD CULTURE [MREF] Stat Lab 10/14/21 15:27 Received BLOOD CULTURE [MREF] Stat Lab 10/14/21 15:31 Received BLOOD GAS ARTERIAL [BG] Stat Lab 10/14/21 18:10 Ordered BLOOD GAS ARTERIAL [BG] Stat Lab 10/14/21 18:25 Ordered LACTIC ACID [CHEM] Routine Lab 10/14/21 18:20 Ordered Dextrose 5%-Lactated Ringers 1,000 ml Med 10/14/21 17:00 Active IV ASDIRECTED Midazolam [Versed 5 MG/ML] 100 mg Med 10/14/21 18:00 Active Sodium Chloride 0.9% [Normal Saline] 80 ml IV TITRATE Sodium Chloride 0.9% [Normal Saline] 1,000 ml Med 10/14/21 15:30 Active IV ONETIME Sodium Chloride 0.9% [Saline Flush] Med 10/14/21 21:00 Active 10 ml FLUSH 0900,2100 Sodium Chloride 0.9% [Saline Flush] Med 10/14/21 15:04 Active 10 ml FLUSH ASDIRECTED PRN fentaNYL [Sublimaze] 2,500 mcg Med 10/14/21 18:00 Active Sodium Chloride 0.9% [Normal Saline] 200 ml IV TITRATE Blood Culture x2 Reflex Set [OM.PC] Stat Oth 10/14/21 15:06 Ordered Peripheral IV Insertion Adult [OM.PC] Stat Oth 10/14/21 15:06 Ordered Medication Orders Sodium Chloride (Normal Saline) 1,000 mls @ 999 mls/hr IV ONETIME FRIDA Last Admin: 10/14/21 15:44 Dose: 999 mls/hr Documented by: EMMIE Dextrose/Lactated Ringer's (Dextrose 5%-Lactated Ringers) 1,000 mls @ 75 mls/hr IV ASDIRECTED FRIDA Last Admin: 10/14/21 17:16 Dose: 75 mls/hr Documented by: EMMIE Midazolam HCl 100 mg/ Sodium (Chloride) 100 mls @ 1 mls/hr IV TITRATE FRIDA; Protocol Fentanyl 2,500 mcg/ Sodium (Chloride) 250 mls @ 5.45 mls/hr IV TITRATE FRIDA; Protocol Sodium Chloride (Sodium Chloride 0.9% 10 Ml Syringe) 10 ml FLUSH 0900,2100 FRIDA Sodium Chloride (Sodium Chloride 0.9% 10 Ml Syringe) 10 ml FLUSH ASDIRECTED PRN PRN Reason: Keep Vein Open Last Admin: 10/14/21 15:49 Dose: 10 ml Documented by: EMMIE Labs: Laboratory Tests 10/14/21 10/14/21 10/14/21 Range/Units 14:53 15:06 15:07 WBC (3.98-10.04) K/mm3 RBC (3.98-5.22) M/mm3 Hgb (11.2-15.7) gm/dl Hct (34.1-44.9) % MCV (79.4-94.8) fl MCH (25.6-32.2) pg MCHC (32.2-35.5) g/dl RDW Std Deviation (36.4-46.3) fL Plt Count (182-369) K/mm3 MPV (9.4-12.3) fl Neutrophils % (Manual) (40-60) % Band Neutrophils % (0-10) % Lymphocytes % (Manual) (20-40) % Atypical Lymphs % % Monocytes % (Manual) (2-10) % Eosinophils % (Manual) (0.7-5.8) % Basophils % (Manual) (0.1-1.2) Toxic Granulation Dohle Bodies Platelet Estimate Ricky Cells RBC Morph Comment ESR (0-20) mm/hr D-Dimer, Quantitative (0.19-0.50) mg/L Puncture Site Lt radial ABG pH 7.27 L (7.35-7.45) ABG pCO2 52.7 H (35.0-45.0) mmHg ABG pO2 74.0 L (80.0-100.0) mmHg ABG HCO3 23.4 (22.0-26.0) meq/L ABG O2 Saturation 89.3 L (96.0-97.0) % ABG Base Excess -3.3 L (-2-2.0) Neil Test Positive O2 Delivery Device Nasal cannula Oxygen Flow Rate 6.0 Sodium (136-145) mEq/L Potassium (3.5-5.1) mEq/L Chloride (98-107) mEq/L Carbon Dioxide (21-32) mEq/L Anion Gap (5-15) BUN (7-18) mg/dL Creatinine (0.55-1.02) mg/dL Est Cr Clr Drug Dosing Estimated GFR (MDRD) (>60) mL/min BUN/Creatinine Ratio (14-18) Glucose (70-99) mg/dL Lactic Acid 4.1 H* (0.4-2.0) mmol/L Calcium (8.5-10.1) mg/dL Total Bilirubin (0.2-1.0) mg/dL AST (15-37) U/L ALT (14-59) U/L Alkaline Phosphatase (46-116) U/L Troponin I (0.00-0.056) ng/mL C-Reactive Protein (<1.0) mg/dL NT-Pro-B Natriuret Pep (0-125) pg/mL Total Protein (6.4-8.2) g/dl Albumin (3.4-5.0) g/dl Globulin gm/dL Albumin/Globulin Ratio (1-2) Lipase (73-393) U/L HCG, Qual (NEGATIVE) SARS-CoV-2 RNA (IRAM) Negative (NEGATIVE) 10/14/21 10/14/21 10/14/21 Range/Units 15:27 15:27 15:27 WBC 15.87 H (3.98-10.04) K/mm3 RBC 4.14 (3.98-5.22) M/mm3 Hgb 11.7 (11.2-15.7) gm/dl Hct 35.6 (34.1-44.9) % MCV 86.0 (79.4-94.8) fl MCH 28.3 (25.6-32.2) pg MCHC 32.9 (32.2-35.5) g/dl RDW Std Deviation 44.0 (36.4-46.3) fL Plt Count 124 L D (182-369) K/mm3 MPV 10.6 (9.4-12.3) fl Neutrophils % (Manual) 61 H (40-60) % Band Neutrophils % 35 H (0-10) % Lymphocytes % (Manual) 4 L (20-40) % Atypical Lymphs % 0 % Monocytes % (Manual) 0 L (2-10) % Eosinophils % (Manual) 0 L (0.7-5.8) % Basophils % (Manual) 0 L (0.1-1.2) Toxic Granulation 4+ Dohle Bodies 1+ slight Platelet Estimate Decreased Ricky Cells 2+ moderate RBC Morph Comment Not Reportable ESR (0-20) mm/hr D-Dimer, Quantitative 9.34 H (0.19-0.50) mg/L Puncture Site ABG pH (7.35-7.45) ABG pCO2 (35.0-45.0) mmHg ABG pO2 (80.0-100.0) mmHg ABG HCO3 (22.0-26.0) meq/L ABG O2 Saturation (96.0-97.0) % ABG Base Excess (-2-2.0) Neil Test O2 Delivery Device Oxygen Flow Rate Sodium 134 L (136-145) mEq/L Potassium 3.5 (3.5-5.1) mEq/L Chloride 99 (98-107) mEq/L Carbon Dioxide 21 (21-32) mEq/L Anion Gap 17.5 H (5-15) BUN 22 H (7-18) mg/dL Creatinine 1.0 (0.55-1.02) mg/dL Est Cr Clr Drug Dosing TNP Estimated GFR (MDRD) > 60 (>60) mL/min BUN/Creatinine Ratio 22.0 H (14-18) Glucose 67 L (70-99) mg/dL Lactic Acid (0.4-2.0) mmol/L Calcium 7.7 L (8.5-10.1) mg/dL Total Bilirubin 1.4 H (0.2-1.0) mg/dL AST 143 H (15-37) U/L ALT 73 H (14-59) U/L Alkaline Phosphatase 94 (46-116) U/L Troponin I < 0.017 (0.00-0.056) ng/mL C-Reactive Protein 36.6 H* (<1.0) mg/dL NT-Pro-B Natriuret Pep (0-125) pg/mL Total Protein 5.4 L (6.4-8.2) g/dl Albumin 1.8 L (3.4-5.0) g/dl Globulin 3.6 gm/dL Albumin/Globulin Ratio 0.5 L (1-2) Lipase (73-393) U/L HCG, Qual (NEGATIVE) SARS-CoV-2 RNA (IRAM) (NEGATIVE) 10/14/21 10/14/21 10/14/21 Range/Units 15:27 15:27 15:27 WBC (3.98-10.04) K/mm3 RBC (3.98-5.22) M/mm3 Hgb (11.2-15.7) gm/dl Hct (34.1-44.9) % MCV (79.4-94.8) fl MCH (25.6-32.2) pg MCHC (32.2-35.5) g/dl RDW Std Deviation (36.4-46.3) fL Plt Count (182-369) K/mm3 MPV (9.4-12.3) fl Neutrophils % (Manual) (40-60) % Band Neutrophils % (0-10) % Lymphocytes % (Manual) (20-40) % Atypical Lymphs % % Monocytes % (Manual) (2-10) % Eosinophils % (Manual) (0.7-5.8) % Basophils % (Manual) (0.1-1.2) Toxic Granulation Dohle Bodies Platelet Estimate Grady Cells RBC Morph Comment ESR 67 H (0-20) mm/hr D-Dimer, Quantitative (0.19-0.50) mg/L Puncture Site ABG pH (7.35-7.45) ABG pCO2 (35.0-45.0) mmHg ABG pO2 (80.0-100.0) mmHg ABG HCO3 (22.0-26.0) meq/L ABG O2 Saturation (96.0-97.0) % ABG Base Excess (-2-2.0) Neil Test O2 Delivery Device Oxygen Flow Rate Sodium (136-145) mEq/L Potassium (3.5-5.1) mEq/L Chloride (98-107) mEq/L Carbon Dioxide (21-32) mEq/L Anion Gap (5-15) BUN (7-18) mg/dL Creatinine (0.55-1.02) mg/dL Est Cr Clr Drug Dosing Estimated GFR (MDRD) (>60) mL/min BUN/Creatinine Ratio (14-18) Glucose (70-99) mg/dL Lactic Acid (0.4-2.0) mmol/L Calcium (8.5-10.1) mg/dL Total Bilirubin (0.2-1.0) mg/dL AST (15-37) U/L ALT (14-59) U/L Alkaline Phosphatase (46-116) U/L Troponin I (0.00-0.056) ng/mL C-Reactive Protein (<1.0) mg/dL NT-Pro-B Natriuret Pep 66528 H (0-125) pg/mL Total Protein (6.4-8.2) g/dl Albumin (3.4-5.0) g/dl Globulin gm/dL Albumin/Globulin Ratio (1-2) Lipase (73-393) U/L HCG, Qual Negative (NEGATIVE) SARS-CoV-2 RNA (IRAM) (NEGATIVE) 10/14/21 Range/Units 16:37 WBC (3.98-10.04) K/mm3 RBC (3.98-5.22) M/mm3 Hgb (11.2-15.7) gm/dl Hct (34.1-44.9) % MCV (79.4-94.8) fl MCH (25.6-32.2) pg MCHC (32.2-35.5) g/dl RDW Std Deviation (36.4-46.3) fL Plt Count (182-369) K/mm3 MPV (9.4-12.3) fl Neutrophils % (Manual) (40-60) % Band Neutrophils % (0-10) % Lymphocytes % (Manual) (20-40) % Atypical Lymphs % % Monocytes % (Manual) (2-10) % Eosinophils % (Manual) (0.7-5.8) % Basophils % (Manual) (0.1-1.2) Toxic Granulation Dohle Bodies Platelet Estimate Ricky Cells RBC Morph Comment ESR (0-20) mm/hr D-Dimer, Quantitative (0.19-0.50) mg/L Puncture Site ABG pH (7.35-7.45) ABG pCO2 (35.0-45.0) mmHg ABG pO2 (80.0-100.0) mmHg ABG HCO3 (22.0-26.0) meq/L ABG O2 Saturation (96.0-97.0) % ABG Base Excess (-2-2.0) Neil Test O2 Delivery Device Oxygen Flow Rate Sodium (136-145) mEq/L Potassium (3.5-5.1) mEq/L Chloride (98-107) mEq/L Carbon Dioxide (21-32) mEq/L Anion Gap (5-15) BUN (7-18) mg/dL Creatinine (0.55-1.02) mg/dL Est Cr Clr Drug Dosing Estimated GFR (MDRD) (>60) mL/min BUN/Creatinine Ratio (14-18) Glucose (70-99) mg/dL Lactic Acid (0.4-2.0) mmol/L Calcium (8.5-10.1) mg/dL Total Bilirubin (0.2-1.0) mg/dL AST (15-37) U/L ALT (14-59) U/L Alkaline Phosphatase (46-116) U/L Troponin I (0.00-0.056) ng/mL C-Reactive Protein (<1.0) mg/dL NT-Pro-B Natriuret Pep (0-125) pg/mL Total Protein (6.4-8.2) g/dl Albumin (3.4-5.0) g/dl Globulin gm/dL Albumin/Globulin Ratio (1-2) Lipase 145 (73-393) U/L HCG, Qual (NEGATIVE) SARS-CoV-2 RNA (IRAM) (NEGATIVE) Meds: Medications Generic Name Dose Route Start Last Admin Trade Name [place] PRN Reason Stop Dose Admin Sodium Chloride 1,000 mls @ 999 mls/hr 10/14/21 15:30 10/14/21 15:44 Normal Saline IV 999 mls/hr ONETIME FRIDA Administration Dextrose/Lactated Ringer's 1,000 mls @ 75 mls/hr 10/14/21 17:00 10/14/21 17:16 Dextrose 5%-Lactated Ringers IV 75 mls/hr ASDIRECTED FRIDA Administration Midazolam HCl 100 mg/ Sodium 100 mls @ 1 mls/hr 10/14/21 18:00 Chloride IV TITRATE FRIDA Protocol 1 MG/HR Fentanyl 2,500 mcg/ Sodium 250 mls @ 5.45 mls/hr 10/14/21 18:00 Chloride IV TITRATE FRIDA Protocol 1 MCG/KG/HR Sodium Chloride 10 ml 10/14/21 21:00 Sodium Chloride 0.9% 10 Ml Syringe FLUSH 0900,2100 FRIDA Sodium Chloride 10 ml 10/14/21 15:04 10/14/21 15:49 Sodium Chloride 0.9% 10 Ml Syringe FLUSH 10 ml ASDIRECTED PRN Administration Keep Vein Open Discontinued Medications Generic Name Dose Route Start Last Admin Trade Name Ronq PRN Reason Stop Dose Admin Albuterol/Ipratropium 3 ml 10/14/21 15:04 10/14/21 15:36 Albuterol/Ipratropium 3.0-0.5 Mg/3 Ml Neb Soln NEB 10/14/21 15:05 3 ml ONETIME ONE Administration Ceftriaxone Sodium Confirm 10/14/21 16:59 Ceftriaxone 2 Gm Advvial Administered 10/14/21 17:00 Dose 2 gm IV .STK-MED ONE Dextrose/Water 50 ml 10/14/21 16:45 10/14/21 16:55 50% Dextrose In Water 50 Ml Syringe IVPUSH 10/14/21 16:46 50 ml ONETIME ONE Administration Fentanyl Confirm 10/14/21 18:08 Fentanyl 2500 Mcg/50 Ml Sdv Administered 10/14/21 18:09 Dose 2,500 mcg .ROUTE .STK-MED ONE Ceftriaxone Sodium 2 gm/ 100 mls @ 200 mls/hr 10/14/21 16:57 10/14/21 17:16 Sodium Chloride IV 10/14/21 17:26 200 mls/hr ONETIME ONE Administration Dextrose/Lactated Ringer's Confirm 10/14/21 16:57 Dextrose 5%-Lactated Ringers Administered 10/14/21 16:58 Dose 1,000 mls @ as directed .ROUTE .STK-MED ONE Sodium Chloride Confirm 10/14/21 16:59 Normal Saline Advbag Administered 10/14/21 17:00 Dose 100 mls @ as directed .ROUTE .STK-MED ONE Levofloxacin/Dextrose 750 mg/ 150 mls @ 100 mls/hr 10/14/21 17:04 10/14/21 17:29 Premix IV 10/14/21 18:33 100 mls/hr ONETIME ONE Administration Sodium Chloride Confirm 10/14/21 18:09 Normal Saline Administered 10/14/21 18:10 Dose 250 mls @ as directed .ROUTE .STK-MED ONE - Re-Assessments/Exams Free Text/Narrative Re-Assessment/Exam: 10/14/21 16:00. Pt is critically ill, don't have definitive dx but know that she had pericardial effusion and pleural effusion on CT 2 days ago. Concerned about possible pericardial tamponade with her hx today of hypoxia, sats 70 room air at the [facility], tachypnea, tachycardia. CT chest, Abd pelvis ordered, appropriate labs ordered, CXR shows cardiomegally, bilat pleural effusions. Both [facility] are on Critical care diversion. 16:20 [facility] also on diversion. Have asked the [facility] coordinator to help out. He states he believes all of the [facility] ICU's are on diversion for transfers. He is going to check in states as well as out of state. 10/14/21 17:00. Have not heard anything yet from the [facility] cancer program coordinator. Her glucose was low, have given 1 amp D50. Have ordered rocephin 2 grams IV, Levaquin 500 mg IV. Have discussed with Dr Hayes, our Hospitalist front desk attendant, he is going to do a consult. 10/14/21 17:16. Other labs 15,870. ESR 67, DD 9.34, LA 4.1, CRP 37, BNP, 10,525 HCG neg, covid neg. 10/14/21 17:18. Dr Hayes is recomending she be intubated with her resp. status worsening even from arrival. Sats are dropping to 88-90, 15 L mask. She is getting fatigued. Still no word on beds available for transfer. Have asked N anesth to come in stat. for emergency intubation. 17:30. Have checked back with [facility] admission coordinator. There are no beds [place], [place] available for ICU transfer at this time. Not sure if they check [place]. They will try again in an hour after change of shift. 10/14/21 18:28. Dr Hayes is putting in a central line. BP so far remaining stable, currently 125/62. 134, 97 % intubated on vent. Pt is on fentanyl and versed drip. Dr Partida, [facility] is kindly accepting this patient in transfer. They have had a bed open up. [place] helicopter is en route to get her, they are about a half hour out. Dr Partida has asked for repeat ABG's now that she is intubated. Garcia cath. has been placed, there is at least some urine output. NG tube also placed. Repeat CXR show satisfactory ET tube placement. 10/14/21 19:20. Jillian. crew just left with patient. Repeat ABG's on vent with fiO2 70 %, rate 12, TV 480, 5 PEEP showed PO2 100, 7.19, pCO2 61.5. Dr Hayes had RT increase rate to 18 from 12, left everything else the same. I Have discussed this with Dr Partida, CCu provider [place]. She would like 2 amps bicarb given if possible. Will get this info to the flight crew. My critical care time for this patient at least 2 1/2 hours. That involves initial hx and exam, ordering of labs and other diagnostics. Tremendous amount of time on the phone attempting to find a critical care bed for this patient. Interpretation of labs, review of CXR, EKG, CT, Radiology reports. Repeat evaluation of patient and ongoing monitering of patient condition. Consult with Dr Hayes, Hospitalist. Multiple discussions with Dr Partida, Critical Care for [facility] and also Dr Viramontes, General Surgeon front desk attendant for [facility] Documentation of all of the above. Unfortunately it took over 3 hours to get patient transferred out from time of initial attempts to find a bed starting at around 15:45. Pt left our facility at about 19:20. Departure - Departure Time of Disposition: 18:30 Disposition: DC/Tfer to Acute Hospital 02 Condition: Critical Clinical Impression: Pleural cavity effusion Respiratory failure Qualifiers: Chronicity: acute Respiratory failure complication: hypoxia and hypercapnia Qualified Code(s): J96.01 - Acute respiratory failure with hypoxia; J96.02 - Acute respiratory failure with hypercapnia Ascites Qualifiers: Ascites type: other type Qualified Code(s): R18.8 - Other ascites Sepsis Qualifiers: Sepsis type: sepsis due to unspecified organism Sepsis acute organ dysfunction status: unspecified Qualified Code(s): A41.9 - Sepsis, unspecified organism - Discharge Information Referrals: PCP,None [Primary Care Provider] - Forms: ED Department Discharge Sepsis Event Note (ED) - Evaluation Sepsis Screening Result: No Definite Risk - Focused Exam Vital Signs: Vital Signs Temp Pulse Resp BP Pulse Ox Pulse Ox Pulse Ox 10/14/21 17:00 92 L 10/14/21 15:37 92 L 10/14/21 14:52 97.4 F 130 H 16 139/74 70 L 10/14/21 14:50 93 L - My Orders Last 24 Hours: My Active Orders 10/14/21 15:04 Sodium Chloride 0.9% [Saline Flush] 10 ml FLUSH ASDIRECTED PRN 10/14/21 15:06 Blood Culture x2 Reflex Set [OM.PC] Stat Peripheral IV Insertion Adult [OM.PC] Stat 10/14/21 15:07 Peripheral IV Care [RC] . DIRECTED 10/14/21 15:27 BLOOD CULTURE [MREF] Stat 10/14/21 15:30 Sodium Chloride 0.9% [Normal Saline] 1,000 ml IV ONETIME 10/14/21 15:31 BLOOD CULTURE [MREF] Stat 10/14/21 17:00 Dextrose 5%-Lactated Ringers 1,000 ml IV ASDIRECTED 10/14/21 18:00 Midazolam [Versed 5 MG/ML] 100 mg Sodium Chloride 0.9% [Normal Saline] 80 ml IV TITRATE fentaNYL [Sublimaze] 2,500 mcg Sodium Chloride 0.9% [Normal Saline] 200 ml IV TITRATE 10/14/21 18:09 RT Ventilator, Adult [RC] ASDIRECTED 10/14/21 18:10 BLOOD GAS ARTERIAL [BG] Stat 10/14/21 18:20 LACTIC ACID [CHEM] Routine 10/14/21 18:25 BLOOD GAS ARTERIAL [BG] Stat 10/14/21 18:53 CXR [Chest 1V Frontal] [CR] Stat 10/14/21 21:00 Sodium Chloride 0.9% [Saline Flush] 10 ml FLUSH 0900,2100 - Assessment/Plan Last 24 Hours: My Active Orders 10/14/21 15:04 Sodium Chloride 0.9% [Saline Flush] 10 ml FLUSH ASDIRECTED PRN 10/14/21 15:06 Blood Culture x2 Reflex Set [OM.PC] Stat Peripheral IV Insertion Adult [OM.PC] Stat 10/14/21 15:07 Peripheral IV Care [RC] . DIRECTED 10/14/21 15:27 BLOOD CULTURE [MREF] Stat 10/14/21 15:30 Sodium Chloride 0.9% [Normal Saline] 1,000 ml IV ONETIME 10/14/21 15:31 BLOOD CULTURE [MREF] Stat 10/14/21 17:00 Dextrose 5%-Lactated Ringers 1,000 ml IV ASDIRECTED 10/14/21 18:00 Midazolam [Versed 5 MG/ML] 100 mg Sodium Chloride 0.9% [Normal Saline] 80 ml IV TITRATE fentaNYL [Sublimaze] 2,500 mcg Sodium Chloride 0.9% [Normal Saline] 200 ml IV TITRATE 10/14/21 18:09 RT Ventilator, Adult [RC] ASDIRECTED 10/14/21 18:10 BLOOD GAS ARTERIAL [BG] Stat 10/14/21 18:20 LACTIC ACID [CHEM] Routine 10/14/21 18:25 BLOOD GAS ARTERIAL [BG] Stat 10/14/21 18:53 CXR [Chest 1V Frontal] [CR] Stat 10/14/21 21:00 Sodium Chloride 0.9% [Saline Flush] 10 ml FLUSH 0900,2100
[2021-10-14] MEDS ORDERED: Sodium Chloride 0.9% 1,000 ML IV SCH (15:30)
--- NOTE | 2021-10-14 15:54 | CR ---
Chest: Frontal view of the chest was obtained. Comparison: Prior chest CT and chest x-ray of 10/12/21. Moderate sized bilateral pleural effusions are seen. This is increased from prior CT study. Heart size is felt to be slightly enlarged. Upper lungs show no definite acute parenchymal change. Bony structures appear within normal limits. Impression: 1. Moderate sized bilateral pleural effusions. 2. Heart size is slightly enlarged and difficult to exclude pericardial effusion. Diagnostic code #3
[2021-10-14] MEDS ORDERED: 50% Dextrose in Water 50 ML Syringe IVPUSH ONE (16:45)
[2021-10-14] MEDS ORDERED: cefTRIAXone 2 GM in Sodium Chloride 0.9% 100 ML IV ONE (16:57)
[2021-10-14] MEDS ORDERED: Dextrose 5%-Lactated Ringers 1,000 ML ONE (16:57)
[2021-10-14] MEDS ORDERED: Sodium Chloride 0.9% 100 ML ONE (16:59)
[2021-10-14] MEDS ORDERED: cefTRIAXone 2 GM AdvVial IV ONE (16:59)
[2021-10-14] MEDS ORDERED: Dextrose 5%-Lactated Ringers 1,000 ML IV SCH (17:00)
[2021-10-14] MEDS ORDERED: Levofloxacin/Dextrose 5%-Water 750 MG in Premix Bag 1 BAG IV ONE (17:04)
--- NOTE | 2021-10-14 17:08 | CT ---
CT chest Technique: Multiple axial sections through the chest were obtained. Intravenous contrast was utilized. Reconstructed coronal and sagittal images were obtained. Comparison: Prior CT chest study of 10/12/21. Findings: Moderate sized bilateral pleural effusions are seen with adjacent compressive atelectasis. Visualized lungs are opacified. Thoracic aorta shows no aneurysm. There is slight increased density within the superior mediastinum which most likely represents residual thymic tissue. No mediastinal adenopathy is seen. No pericardial thickening is seen. Heart is slightly enlarged. Bone window settings were reviewed. No acute osseous abnormality is appreciated. Impression: 1. Moderate sized bilateral pleural effusions with adjacent compressive atelectasis. Pleural effusions have increased from prior exam. 2. Heart is somewhat enlarged. 3. No additional abnormality is appreciated on CT study of the chest. Diagnostic code #3 CT abdomen and pelvis Technique: Multiple axial sections were obtained from above the dome of the diaphragm inferiorly through the pubic symphysis. Intravenous contrast was utilized. No oral contrast has been given. Reconstructed coronal and sagittal images were obtained. Comparison: Prior CT abdomen and pelvis of 10/10/21. Findings: Liver contains no focal abnormality. Increased density is seen within the gallbladder most likely representing sludge. Spleen size is within normal limits. Adrenal glands show no nodule. Pancreas appears within normal limits. Kidneys show symmetric contrast enhancement with no hydronephrosis or mass. Ascites is seen around the liver and spleen and continues down both paracolic gutters and becomes confluent into the pelvis. These findings are an interval change from prior study. Abdominal aorta shows no aneurysm. No retroperitoneal adenopathy or discrete mesenteric abnormalities are seen. No pelvic mass or adenopathy is seen. No bowel dilatation is seen. Appendix is not well seen on this exam. Bone window settings were reviewed which appear within normal limits for the patient's age. Impression: 1. Mild to moderate amount of ascites is seen within the abdomen which is an interval change from prior exam. 2. No additional abnormality is definitely appreciated on CT study of the abdomen and pelvis. Diagnostic code #3
[2021-10-14] MEDS ORDERED: fentaNYL 2,500 MCG in Sodium Chloride 0.9% 200 ML IV SCH (18:00)
[2021-10-14] MEDS ORDERED: fentaNYL 2500 MCG/50 ML SDV ONE (18:08)
[2021-10-14] MEDS ORDERED: Sodium Chloride 0.9% 250 ML ONE (18:09)
--- NOTE | 2021-10-14 18:19 | CR ---
Chest: Portable supine view of the chest was obtained. Comparison: Prior chest x-ray performed earlier on the same day (3:32 PM). Bilateral pleural effusions are seen. Heart size appears slightly enlarged. Upper mediastinum is within normal limits. Endotracheal tube is seen with tip lying at the level of the clavicles. Nasogastric tube is seen which courses off the inferior edge of the film within the stomach. Bony structures show nothing acute. Impression: 1. Bilateral pleural effusions. Heart size slightly prominent. 2. Endotracheal tube which is satisfactory in position. 3. Nasogastric tube which courses off the inferior edge of the film within the stomach which is felt to be satisfactory. Diagnostic code #3
--- NOTE | 2021-10-14 18:41 | PCM.SN.2 ---
- Free Text/Narrative Note: Anesthesia Note: Anesthesia called for Intubation on septic 25 year old female. Chart reviewed, allergies noted, and procedure explained to patient prior to performing. (No consent obtained due to the urgency of the situation) Monitors/alarms on, patient preOxygenated with 100% FIO2 via bag/mask ventilation. Rapid Sequence Induction Noted: Cricoid pressure, along with induction of the following: Versed 2mg IV Fentanyl 100mcg IV Propofol 100mg IV Succ: 120 mg IV Zemeron: 50mg IV after patient noted to be swallowing and assisting ventilator. Patient intubated without difficulty size 7 ETT secured at 21cm at the lip. Positive etCO2 noted, BBS noted as well. 19 [place] citizen NG tube placed to right nare and placed to LIS. (200ml's of pink tinged gastric contents noted.) Ventilator (initial) Settings: Tidal Volume: 480ml Rate: 10/min Peep: +5 FIO2: 100% Respiratory Therapist informed to do ABG in 30 minutes. Portable CXR: confirms satisfactory placement of ETT, and NG tube. Vital signs remained stable with a sinus tachycardia in the 120's-130's, Spo2= 90-100%, BP:90- 110's/60-70. IV sedation (initial): post intubation: Versed: 3mg/hour Fentanyl: 50mcg/hr(per hospitalist request) Thank you! Asuncion Brown CRNA
--- NOTE | 2021-10-14 19:44 | CR ---
Chest: Portable supine view of the chest was obtained. Comparison: Prior study performed earlier on same day (6:05 PM). Right-sided pleural effusion is seen as well as smaller left-sided pleural effusion. Heart remains enlarged. Pulmonary vessels appear to be somewhat prominent. Nasogastric tube is seen. Endotracheal tube is seen. Right jugular line is noted with tip lying at the junction of the superior vena cava and right atria. Bony structures are within normal limits. Impression: 1. Right-sided pleural effusion and small left-sided pleural effusion. 2. Pulmonary vessels appear to be somewhat prominent on current exam. Heart is enlarged. 3. Stable and satisfactory position of endotracheal tube and nasogastric tube. 4. New central line through the jugular vein with tip lying near the junction of the superior vena cava and right atria. Diagnostic code #3
[2021-10-14] MEDS ORDERED: Sodium Chloride 0.9% 10 ML Syringe FLUSH SCH (21:00)
[2021-10-14] MEDS ORDERED: Midazolam 1 MG/ML 5 ML SDV ONE (23:00)
[2021-10-14] MEDS ORDERED: fentaNYL 100 MCG/2 ML SDV ONE (23:00)
[2021-10-14] MEDS ORDERED: Rocuronium 50 MG/5 ML Vial ONE (23:00)
[2021-10-14] MEDS ORDERED: Propofol 200 MG/20 ML SDV ONE (23:00)
[2021-10-14] MEDS ORDERED: Succinylcholine 200 MG/10 ML MDV ONE (23:00)
== END 2021-10-14 19:40 ==
LOC: JD.ED 14:48
DX: A41.9 Sepsis, unspecified organism (principal); J96.01 Acute respiratory failure with hypoxia; J96.02 Acute respiratory failure with hypercapnia; J90 Pleural effusion, not elsewhere classified; R18.8 Other ascites; R00.0 Tachycardia, unspecified; Z88.0 Allergy status to penicillin; Z20.822 Contact with and (suspected) exposure to COVID-19
CPT/HCPCS: 31500; 36415; 36556; 36600; 43752; 51702; 71045; 71260; 74177; 80053; 81001; 82803; 83605; 83690; 83880; 84484; 84703; 85007; 85027; 85379; 85652; 86140; 87040; 87150; 87635; 93005; 96365; 96375; 99291; J0330; J0696; J1956; J2250; J2704; J3010; J7030; J7050; J7121; 87077; 87186; J7620-GY; U0002